=== PATIENT | male | born 2000 | race Caucasian/White ===

== ENCOUNTER 2019-04-14 19:34 | Observation (INO) ==
[~2019-04-14 19:34] MED LIST: SALINE LOCK IV FLUID XX ONE; SODIUM CHLORIDE 0.9% INJ SCH
--- NOTE | 2019-04-14 20:39 | Diag Imaging Result Doc PS360 ---
EXAM: CHEST-2 VIEWS - 04/14/2019 HISTORY: abd pain TECHNIQUE: Chest two views COMPARISON: 07/15/2017 FINDINGS: Heart size is normal. There is apparent slight scarring at the right upper lobe. The lungs otherwise appear clear. There is no pleural effusion or pneumothorax identified. IMPRESSION: No evidence of acute disease. Electronically signed by Anam Jensen 04/14/2019 8:36 PM
--- NOTE | 2019-04-14 20:44 | Diag Imaging Result Doc PS360 ---
EXAM: CT ABDOMEN/PELVIS W/O CONTRAST - 04/14/2019 HISTORY: RT abd pain/nausea TECHNIQUE: CT renal stone search without contrast COMPARISON: 07/15/2017 CT abdomen/pelvis with IV contrast FINDINGS: There is no hydronephrosis or perinephric edema identified. There is no renal stone identified. There is no evidence of bowel obstruction. The appendix shows no obvious inflammation. There is no free air. There are a few enlarged mesenteric lymph nodes at the right lower quadrant, which can be seen with mesenteric adenitis. There are no calcified gallstones or pericholecystic inflammation identified. There are no gross abnormalities of the liver, spleen, adrenal glands, or pancreas identified. The visualized lung bases are clear. IMPRESSION: No evidence of renal stone or hydronephrosis. Mild mesenteric adenopathy at right lower quadrant, which can be seen with mesenteric adenitis. No bowel obstruction. No obvious appendicitis. This exam was performed using automated exposure control, adjustment of mA or kV according to patient size, and/or use of iterative reconstruction technique. Electronically signed by Anam Jensen 04/14/2019 8:42 PM
[2019-04-14] MEDS: DILAUDID IV PRN (22:05)
[2019-04-14] MEDS: PROTONIX IV SCH (22:06)
[2019-04-14] MEDS: ZOFRAN IV PRN (22:06)
--- NOTE | 2019-04-14 23:00 | HISTORY AND PHYSICAL ---
CHIEF COMPLAINT: Right upper quadrant abdominal pain and headache. HISTORY OF PRESENT ILLNESS: The patient is a 18-year-old white male followed in my medical practice who comes in with complaints of right upper quadrant abdominal pain with nausea. He says this has been going on for about 2 weeks, but intensified over the past 48 hours or so. He has also had some headache that has been fairly severe the last 48 hours. He denies fever. No vomiting, but has had severe nausea. Has not been able to eat or drink well. Denies diarrhea. The patient has undergone EGD and colonoscopy per Dr. Polo Lopez in July 2017 revealing some erosive esophagitis and grade 1 internal hemorrhoids. Had abdominal ultrasound done in June 2017, which was negative. The patient has noted some dark bowel movements and denies use of Pepto- Bismol. MEDICATIONS: See chart. ALLERGIES: Cashews. PAST MEDICAL HISTORY: History of stress fractures in both feet in 2012. PAST SURGICAL HISTORY: Midline low hernia repair in 2005. FAMILY HISTORY: Notable for fibromyalgia in his grandmother, hypertension in his mother, myasthenia gravis in his grandfather. SOCIAL HISTORY: The patient lives in [place]. He is single. Does not smoke. Does not drink alcohol. Parents have in the past few years, which has been a stressor for patient. REVIEW OF SYSTEMS: Negative except as above. Notable normal blood pressures in the past. Today, his blood pressure is elevated at 158/100 in the office. PHYSICAL EXAMINATION: VITAL SIGNS: Weight 202, height 5 feet 7 inches, blood pressure 158/100, pulse 99, BMI 31. GENERAL: Well-developed, well-nourished white male, who complains of severe right upper quadrant pain radiating to right inferior axilla. No rashes identified. Mild obesity. HEENT: PERRL. EOMI. Sclerae clear. Oropharynx: No redness. Tongue in the midline. NECK: No LA, TMG, JVD, bruits. CV: RRR without murmur. LUNGS: CTA. BACK: No CVA tenderness. ABDOMEN: Soft. Active bowel sounds. Positive Carey sign. Moderate tenderness right upper quadrant. Minimal tenderness right inferior costal. No axillary LA. No rebound or guarding. No hepatosplenomegaly. GENITOURINARY/RECTAL: Deferred. EXTREMITIES: No calf tenderness, cords or edema. NEUROLOGIC: Cranial nerves 2-12 are intact. Nonfocal. LABORATORIES: Labs obtained today showed normal CMP, amylase, lipase, and CBC. Abdominal ultrasound is negative. ASSESSMENT: 1. Right upper quadrant abdominal pain with radiation to right inferior axilla. 2. History of gastritis in the past. 3. Headache. 4. Elevated blood pressure, possibly related to pain. 5. Nausea. 6. Mild obesity. PLAN: The patient was notified of the test results which were good and he complains of excruciating pain in the right upper quadrant. We will admit the patient for 23-hour observation, give him IV proton pump inhibitor, clear liquids until midnight. Keep him NPO thereafter with possible HIDA scan in the morning. In the interim, we will check urinalysis and check CT abdomen and pelvis. Check serial cardiac enzymes, troponin levels again. Check CT RSS. Start IV proton pump inhibitor, Dilaudid at low dose for pain. Zofran for nausea. Tylenol as required. Monitor blood pressure closely. Check EKG. cc: Eldon Garay MD
[2019-04-15] MEDS: DILAUDID IV PRN ×3 (03:41→17:35)
[2019-04-15] MEDS: ZOFRAN IV PRN ×3 (03:49→17:35)
[2019-04-15 05:25] LABS: URINE SOURCE CLEAN CATCH
[2019-04-15 05:38] LABS: BILIRUBIN URINE NEGATIVE (NEGATIVE); BLOOD URINE NEGATIVE (NEGATIVE); COLOR YELLOW; GLUCOSE URINE NEGATIVE (NEGATIVE); KETONE URINE 10 mg/dL (NEGATIVE); NITRITE URINE NEGATIVE (NEGATIVE); PH URINE 6.5; PROTEIN URINE 50 mg/dL (NEGATIVE); SP GRAVITY URINE 1.043; TURBIDITY URINE CLEAR (CLEAR); UROBILINOGEN URINE 2 mg/dL (NORMAL)
[2019-04-15 05:39] LABS: LEUKOCYTES URINE NEGATIVE (NEGATIVE)
[2019-04-15 05:40] LABS: UR EPITHELIAL CELLS <10 /HPF (<10); URINE BACTERIA NEGATIVE /HPF; URINE RBC <10 /HPF (<10); URINE WBC <10 /HPF (<10)
[2019-04-15] MEDS: PROTONIX IV SCH (06:05)
[2019-04-15] MEDS: NS + KCL 20 MEQ 1,000 ML IV SCH (10:02)
[2019-04-15] MEDS: TYLENOL PO PRN ×3 (10:02→17:35)
--- NOTE | 2019-04-15 17:27 | Diag Imaging Result Doc PS360 ---
EXAM: HIDA SCAN W/ EJECTION FRACTION HISTORY: RUQ pain TECHNIQUE: Nuclear medicine HIDA scan with gallbladder ejection fraction COMPARISON: None. FINDINGS: 3.5 mCi Choletec administered. There is normal uptake within the liver. Normal filling of the gallbladder with emptying into the small bowel. Ensure was given to determine the gallbladder ejection fraction. No emptying occurs following Ensure. IMPRESSION: Abnormal exam with no gallbladder emptying occurring following ensure. Electronically signed by Az Darnell 04/15/2019 5:25 PM
[2019-04-15] MEDS: ZOSYN 3.375 GM in NS 50 ML IV SCH ×2 (17:40→23:15)
[2019-04-15] MEDS: REGLAN IV PRN (18:21)
[2019-04-15] MEDS: PHENERGAN IM PRN (19:51)
--- NOTE | 2019-04-15 20:47 | PROGRESS NOTE ---
DATE: 04/15/2019 SUBJECTIVE: The patient continues to have pain in the right upper quadrant with nausea. He has received some Dilaudid and Zofran, with modest results. OBJECTIVE: Afebrile. Vital signs stable.CV: RRR without murmur. Lungs: CTA. Abdomen soft. Active bowel sounds. Moderate tenderness, right upper quadrant. No mass or organomegaly. Minimal tenderness, right lower quadrant. Extremities: No edema. Neurologic: Nonfocal. LABORATORY DATA: Cardiac enzymes and troponin levels negative. Urinalysis negative except for 50 of protein. DIAGNOSTIC DATA: CT abdomen and pelvis done late yesterday evening revealed possible mild mesenteric adenopathy at the right lower quadrant. HIDA scan with CCK completed late this evening reveals abnormal exam with no gallbladder emptying occurring. ASSESSMENT: 1. Right upper quadrant abdominal pain with abnormal HIDA scan. 2. Elevated blood pressure, now normalized after pain control. 3. Mild obesity. PLAN: I spoke with Dr. Lemos and he will see the patient in consultation from a surgical standpoint. We have him on IV PPI and have placed him on Zosyn. We will defer additional antiemetics or pain medications to Dr. Lemos for now. Continue Zofran and Dilaudid. cc: Eldon Garay MD
[2019-04-16] MEDS: NS + KCL 20 MEQ 1,000 ML IV SCH ×3 (03:29→10:28)
--- NOTE | 2019-04-16 04:52 | GENERAL SURGERY CONSULTATION ---
DATE: 04/15/2019 CHIEF COMPLAINT: Epigastric abdominal discomfort, and right upper quadrant pain. REASON FOR CONSULTATION: Biliary dyskinesia. HISTORY OF PRESENT ILLNESS: A 18-year-old gentleman who has had long-standing epigastric right upper quadrant abdominal pain over the last several months. He has had an outpatient workup with ultrasound, upper and lower endoscopy a year ago that failed to show any etiology. He was admitted by Dr. Garay. CT scan suggests mesenteric adenitis. He had a HIDA scan that showed no ejection from the gallbladder, but normal filling of the gallbladder. He struggles with constipation he says, but has had no blood in his stools. Weight if anything he has been gaining. Denies any fever. He has had bouts of nausea that even wake him up in the middle of the night, but no vomiting. PAST MEDICAL HISTORY: Negative. PAST SURGICAL HISTORY: He has had an inguinal hernia repair as a child. FAMILY HISTORY: Fibromyalgia, hypertension, and myasthenia gravis. SOCIAL HISTORY: No tobacco, alcohol, or drugs. He works and is in school. REVIEW OF SYSTEMS: A 10-point review of systems was performed, and negative otherwise mentioned in HPI. MEDICATIONS: Reviewed. OBJECTIVE: On exam, he is afebrile, pulse 73, blood pressure 122/60, and oxygen saturation 100 percent.General: He is alert in no acute distress. HEENT: No scleral icterus. No cervical mass. Cardiovascular: Normal rate. Pulmonary: No increased work of breathing. Abdomen: Soft. He is tender subjectively in the right upper quadrant but no guarding. No peritonitis. There is no flank pain. No right lower quadrant pain to palpation. Integument: Warm and dry without jaundice. Psychiatric: Appropriate affect. Neurologic: No gross deficits. Lymphatic: No cervical, axillary or inguinal adenopathy. LABORATORY: White count was normal on check yesterday. His LFTs are normal. His creatinine was normal. His lipase was normal. Urinalysis was without nitrates or leukocytes. Troponins have been negative. I reviewed his CT scan and ultrasound and HIDA scan. ASSESSMENT AND PLAN: This is a 18-year-old gentleman with biliary colic type symptoms. He has no ejection fraction on HIDA scan. Although this may be limited by IV narcotics given the remainder of his workup and his classic symptoms, I do suspect that this is gallbladder in etiology. We discussed risks of bleeding, infection, damage to surrounding structures, conversion to open, bile leak, possibility of persistent symptoms. He understands. I do not have any concern for Crohn's disease. It is possible that he has some degree of irritable bowel, but to make that diagnosis I think a cholecystectomy is indicated. We will make him n.p.o. at midnight. I told him he could have clear liquids until then. He has asked for some Phenergan. I have ordered this for him, and we will plan for laparoscopic cholecystectomy with cholangiogram tomorrow. cc: MD Eldon Maldonado MD
[2019-04-16] MEDS: ZOSYN 3.375 GM in NS 50 ML IV SCH ×2 (05:13→12:03)
[2019-04-16] MEDS: PROTONIX IV SCH ×2 (05:13→05:44)
[2019-04-16] MEDS: PHENERGAN IM PRN (11:50)
[2019-04-16] MEDS ORDERED: LR 1,000 ML ONE (13:22)
[2019-04-16] MEDS ORDERED: SENSORCAINE 0.5%-EPI 1:200,000 ONE (13:23)
[2019-04-16] MEDS ORDERED: SODIUM CHLORIDE 0.9% ONE (13:23)
[2019-04-16] MEDS ORDERED: VERSED ONE ×2 (13:44→15:10)
[2019-04-16] MEDS ORDERED: DIPRIVAN 1% ONE (13:44)
[2019-04-16] MEDS ORDERED: FENTANYL ONE ×2 (13:44→15:56)
[2019-04-16] MEDS ORDERED: NORCURON ONE (15:27)
[2019-04-16] MEDS ORDERED: NEOSTIGMINE ONE (16:12)
[2019-04-16] MEDS ORDERED: ROBINUL ONE (16:12)
--- NOTE | 2019-04-16 16:14 | Diag Imaging Result Doc PS360 ---
EXAM: OPERATIVE CHOLANGIOGRAM 04/16/2019 HISTORY: CHOLECYSTECTOMY TECHNIQUE: Intraoperative cholangiogram COMMENT: The common hepatic and common bile ducts are patent and there are no filling defects demonstrated. There is contrast in the duodenum. IMPRESSION: No evidence of retained stones. Electronically signed by Cuba Howard 04/16/2019 4:11 PM
[2019-04-16] MEDS: PHENERGAN ONE ×2 (17:07→17:17)
[2019-04-16] MEDS: DILAUDID ONE ×4 (17:11→17:41)
--- NOTE | 2019-04-16 19:47 | PROGRESS NOTE ---
DATE: 04/16/2019 SUBJECTIVE: I saw the patient just prior to his surgery. He was alert, talkative. Pain was fairly well controlled. He was still having some nausea. OBJECTIVE: Vital Signs: Afebrile. His vital signs are stable. Cardiovascular: RRR without murmur. Lungs: CTA. Abdomen: Mild to moderate right upper quadrant tenderness. Extremities: No calf tenderness, cords, or edema. Neurologic: Cranial nerves 2 through 12 are intact, nonfocal. IMAGING STUDIES: Prominently abnormal HIDA scan with 0 ejection fraction noted. ASSESSMENT: 1. Right upper quadrant abdominal pain with abnormal HIDA scan. 2. Mild obesity. PLAN: Patient is scheduled per Dr. Lemos to have a cholecystectomy. We have placed him on Zosyn, given him pain control with Dilaudid at low dose and Phenergan for nausea and vomiting. Await surgery. cc: Eldon Garay MD
[2019-04-16] MEDS: DILAUDID IV PRN (21:05)
[2019-04-16] MEDS: REGLAN IV PRN (21:05)
--- NOTE | 2019-04-16 22:52 | OPERATIVE NOTE ---
PROCEDURE DATE: 04/16/2019 PREOPERATIVE DIAGNOSIS: Biliary dyskinesia. POSTOPERATIVE DIAGNOSIS: Biliary dyskinesia. PROCEDURE PERFORMED: Laparoscopic cholecystectomy with cholangiogram. DIGITAL SPECIALIST: Dr. Grady was present for the entirety of the case. He facilitated exposure, identification of anatomy and retraction. ESTIMATED BLOOD LOSS: 5 mL. SPECIMENS: Gallbladder. ANESTHESIA: General. INDICATIONS: This is a 18-year-old gentleman who has had vague upper GI complaints for upper abdominal pain and nausea for several months. His workup resulted in a HIDA scan that showed no ejection fraction. 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 There was omental adhesions to the gallbladder. There was very long narrow cystic duct. Interpretation of intraoperative cholangiogram showed rapid flow of contrast through a normal caliber cystic duct into a nondilated common bile duct into the duodenum with no filling defects. Intrahepatic radicals normal. OPERATIVE NOTE: The risks, benefits and alternatives were discussed patient who consented to the procedure. Seen preoperatively. The surgical site was confirmed and marked. He was taken to the operating room and placed in the supine position. General anesthesia induced without complication. All bony prominences were padded. Hair was removed with clippers and his abdomen is prepped chlorhexidine solution and draped in the usual fashion. After time-out, a supraumbilical incision was made and carried down to the fascia. The fascia was incised along the midline. The abdomen is entered in a controlled fashion. A 12 mm Kevin trocar was placed under direct visualization. The abdomen was insufflated. He tolerated it well. Three additional trocars were placed along the costal margin. The gallbladder was grasped and retracted cephalad. We took down the omental adhesion using blunt and electrocautery dissection exposing the infundibulum. We scored the peritoneum and dissected out the triangle widely, encircled the cystic artery and cystic duct. The liver was visualized through this triangle. We placed a clip on the gallbladder side, doubly clipped the artery, made a ductotomy, performed cholangiogram. After satisfactory cholangiogram, we triply clipped the cystic duct and divided it and the artery and removed the gallbladder from the gallbladder fossa with care not to rupture. We placed it in an EndoCatch bag. The abdomen was irrigated. There was no bleeding. There was no bile leakage. The remaining trocars were removed. The abdomen was desufflated. The gallbladder was brought out through the umbilical incision. Fascia was closed with 0 Vicryl. Skin was closed with 4-0 Monocryl. Dermabond was applied. Counts correct. He was awoken and transferred to recovery. I spoke with the family. cc: MD Eldon Maldonado MD
[2019-04-17] MEDS: PROTONIX IV SCH ×2 (01:01→11:15)
[2019-04-17] MEDS: NS + KCL 20 MEQ 1,000 ML IV SCH ×2 (04:22→11:14)
[2019-04-17] MEDS: TYLENOL PO PRN (06:20)
[2019-04-17 07:14] VITALS: BP 127/76
--- NOTE | 2019-04-17 14:23 | PROGRESS NOTE ---
DATE: 04/17/2019 SUBJECTIVE: The patient is doing well postop, status post laparoscopic cholecystectomy late yesterday evening with normal intraoperative cholangiogram. He has had some soreness but overall feeling much better. OBJECTIVE: Afebrile. Vital signs stable. CV: RRR without murmur. Lungs: CTA. Abdomen: Active bowel sounds. Wounds: Number about five over the abdomen, are clean and dry. Extremities: No calf tenderness, cords, or edema. Neurologic: Cranial nerves are intact. No focal deficits. ASSESSMENT: 1. Dysfunctional gallbladder with pronounced symptoms of right upper quadrant abdominal pain and abnormal HIDA scan which showed a 0 ejection fraction, now postoperative day #1 status post laparoscopic cholecystectomy. 2. Mild obesity. PLAN: Dr. Lemos has come by and recommends discharge from the hospital. He is sending the patient home on some [place], Phenergan, and MiraLAX. He will follow up with me p.r.n. and with Dr. Lemos in 1 week. cc: Eldon Garay MD
--- NOTE | 2019-04-17 15:55 | GENERAL SURGERY PROGRESS NOTE ---
DATE: 04/17/2019 SUBJECTIVE: Feels well. He is tolerating p.o. His abdomen is sore but nontender. PHYSICAL EXAMINATION: Afebrile. No tachycardia. Abdomen is soft. Incision intact. ASSESSMENT AND PLAN: A 18-year-old gentleman status post laparoscopic cholecystectomy with IOC for biliary dyskinesia. He feels well. He can see me next week. I have given a prescription for [place]. He will continue MiraLAX daily and Phenergan as needed for nausea. He will see me back next week. He will also continue his PPI. Given postoperative instructions. cc: MD Eldon Maldonado MD
== END 2019-04-17 12:11 | disposition home or self-care (01) ==
LOC: DIRADM → 3N 19:34
PROVIDERS: ADMIT Family Medicine; ATTEND Family Medicine